=== PATIENT | female | born 1950 | race Caucasian/White ===

== ENCOUNTER 2022-03-14 19:54 | Inpatient (IN) | payer MEDICARE, OTHER ==
[2022-03-14 21:04] LABS: ANION GAP 17.9 mEq/L (7-13)
[2022-03-14] MEDS ORDERED: Lactated Ringers 1,000 ML IV ONE (22:42)
[2022-03-15] MEDS ORDERED: Ondansetron 4 MG/2 ML SDV IVPUSH PRN (00:24)
[2022-03-15] MEDS ORDERED: Docusate Sodium 100 MG Cap PO PRN (00:24)
[2022-03-15] MEDS ORDERED: Bisacodyl 5 MG Tab PO PRN (00:24)
[2022-03-15] MEDS ORDERED: Polyethylene Glycol 3350 Powder 17 GM Packet PO PRN (00:24)
[2022-03-15] MEDS ORDERED: Sodium Chloride 0.9% 1,000 ML IV SCH (00:30)
[2022-03-15] MEDS ORDERED: Aspirin 81 MG Tab.Chew PO ONE ×2 (00:53)
[2022-03-15 06:40] LABS: ANION GAP 17.1 mEq/L (7-13)
[2022-03-15] MEDS ORDERED: Potassium Chloride 10 MEQ Tab.ER PO ONE (07:31)
[2022-03-15] MEDS: Enoxaparin 30 MG/0.3 ML Syringe SUBCUT SCH (08:54)
[2022-03-15] MEDS: Acetaminophen 325 MG Tab PO PRN ×2 (08:54→22:18)
[2022-03-15] MEDS: Sodium Chloride 0.45% with KCl 1,000 ML IV SCH ×2 (08:56→22:17)
[2022-03-16] MEDS: Enoxaparin 30 MG/0.3 ML Syringe SUBCUT SCH (10:04)
[2022-03-16] MEDS: Sodium Chloride 0.9% 10 ML Syringe FLUSH PRN (21:01)
[2022-03-16] MEDS: Acetaminophen 325 MG Tab PO PRN (21:15)
[2022-03-17 07:26] LABS: ANION GAP 12.5 mEq/L (7-13)
[2022-03-17] MEDS ORDERED: Loperamide 2 MG Cap PO PRN (07:36)
[2022-03-17] MEDS: Enoxaparin 30 MG/0.3 ML Syringe SUBCUT SCH (08:24)
[2022-03-17] MEDS ORDERED: Nystatin Topical Powder 30 GM Bottle TOP SCH (09:00)
[2022-03-17] MEDS ORDERED: metroNIDAZOLE 250 MG Tab PO SCH (12:00)
[2022-03-17] MEDS: Acetaminophen 325 MG Tab PO PRN (12:49)
[2022-03-17] MEDS: metroNIDAZOLE 250 MG Tab PO SCH ×2 (12:51→21:41)
[2022-03-17] MEDS: Nystatin Topical Powder 30 GM Bottle TOP SCH (20:01)
[2022-03-17] MEDS: Sodium Chloride 0.9% 10 ML Syringe FLUSH PRN (20:04)
[2022-03-17] MEDS: Acetaminophen/HYDROcodone 325-5 MG Tab PO PRN (20:17)
[2022-03-18] MEDS: metroNIDAZOLE 250 MG Tab PO SCH (05:51)
[2022-03-18 07:23] LABS: ANION GAP 9.7 mEq/L (7-13)
[2022-03-18] MEDS: Acetaminophen/HYDROcodone 325-5 MG Tab PO PRN ×2 (09:11→15:57)
[2022-03-18] MEDS: Enoxaparin 30 MG/0.3 ML Syringe SUBCUT SCH (09:13)
[2022-03-18] MEDS: Nystatin Topical Powder 30 GM Bottle TOP SCH ×2 (09:13→20:31)
[2022-03-18] MEDS: Sodium Chloride 0.9% 10 ML Syringe FLUSH PRN (20:30)
[2022-03-19] MEDS: Acetaminophen/HYDROcodone 325-5 MG Tab PO PRN ×4 (00:14→21:49)
[2022-03-19 06:58] LABS: ANION GAP 5.2 mEq/L (7-13); CHLORIDE,CL 104 mmol/L (98-107); SODIUM,NA 132 mmol/L (136-145)
[2022-03-19 07:03] LABS: ESTIMATED GFR 78 mL/min (>=60)
[2022-03-19] MEDS ORDERED: Potassium Chloride 10 MEQ Tab.ER PO ONE (08:05)
[2022-03-19] MEDS: Enoxaparin 30 MG/0.3 ML Syringe SUBCUT SCH (09:10)
[2022-03-19] MEDS: Nystatin Topical Powder 30 GM Bottle TOP SCH ×2 (09:14→21:40)
[2022-03-19] MEDS: Polyvinyl Alcohol 1.4% Ophth Soln 15 ML Bottle EYEBOTH SCH ×4 (09:15→21:32)
[2022-03-19] MEDS: Albuterol/Ipratropium 3.0-0.5 MG/3 ML Neb Soln NEB PRN (23:16)
[2022-03-20 09:13] LABS: ANION GAP 11.7 mEq/L (7-13)
[2022-03-20] MEDS ORDERED: REMDESIVIR 200 MG in Sodium Chloride 0.9% 250 ML IV ONE (10:00)
[2022-03-20] MEDS ORDERED: Dexamethasone 4 MG/ML SDV IVPUSH ONE (10:15)
[2022-03-20] MEDS: Polyvinyl Alcohol 1.4% Ophth Soln 15 ML Bottle EYEBOTH SCH ×4 (11:34→21:18)
[2022-03-20] MEDS: Enoxaparin 30 MG/0.3 ML Syringe SUBCUT SCH (11:34)
[2022-03-20] MEDS: Nystatin Topical Powder 30 GM Bottle TOP SCH ×2 (11:34→21:18)
[2022-03-20] MEDS ORDERED: Menthol 10%/Methyl Salicylate 15% 85 GM Tube TOP PRN (12:20)
[2022-03-20] MEDS: Levofloxacin/Dextrose 5%-Water 500 MG in Premix Bag 1 BAG IV SCH (13:27)
[2022-03-20] MEDS ORDERED: Iopamidol 755 Mg/ML 100 ML Bottle IVPUSH ONE (17:37)
[2022-03-20] MEDS: Melatonin 3 MG Tab PO PRN (21:16)
[2022-03-20] MEDS: Apixaban 5 MG Tab PO SCH (21:16)
[2022-03-20] MEDS: Albuterol/Ipratropium 3.0-0.5 MG/3 ML Neb Soln NEB PRN (21:16)
[2022-03-20] MEDS: Sodium Chloride 0.9% 10 ML Syringe FLUSH PRN (21:17)
[2022-03-20] MEDS: Acetaminophen/HYDROcodone 325-5 MG Tab PO PRN (21:19)
[2022-03-21] MEDS: Acetaminophen/HYDROcodone 325-5 MG Tab PO PRN ×2 (02:28→21:18)
[2022-03-21 06:23] LABS: ANION GAP 11.5 mEq/L (7-13)
[2022-03-21] MEDS: Apixaban 5 MG Tab PO SCH ×2 (09:49→21:16)
[2022-03-21] MEDS: Nystatin Topical Powder 30 GM Bottle TOP SCH ×2 (09:50→21:17)
[2022-03-21] MEDS: Polyvinyl Alcohol 1.4% Ophth Soln 15 ML Bottle EYEBOTH SCH ×4 (09:51→21:17)
[2022-03-21] MEDS: REMDESIVIR 100 MG in Sodium Chloride 0.9% 100 ML IV SCH (09:58)
[2022-03-21] MEDS: Losartan 50 MG Tab PO SCH ×2 (10:01→21:16)
[2022-03-21] MEDS: Hydroxychloroquine 200 MG Tab PO SCH ×2 (10:01→21:18)
[2022-03-21] MEDS: Montelukast 10 MG Tab PO SCH (10:01)
[2022-03-21] MEDS: Gabapentin 300 MG Cap PO SCH ×3 (10:03→21:17)
[2022-03-21] MEDS: Fluticasone NASAL Spray 16 GM Bottle NASBOTH SCH (10:04)
[2022-03-21] MEDS: Levofloxacin/Dextrose 5%-Water 500 MG in Premix Bag 1 BAG IV SCH (11:14)
[2022-03-21] MEDS: predniSONE 5 MG Tab PO SCH (21:18)
[2022-03-21] MEDS: Melatonin 3 MG Tab PO PRN (21:18)
[2022-03-22] MEDS: Hydroxychloroquine 200 MG Tab PO SCH ×2 (09:24→21:40)
[2022-03-22] MEDS: Montelukast 10 MG Tab PO SCH (09:25)
[2022-03-22] MEDS: Apixaban 5 MG Tab PO SCH ×2 (09:25→21:40)
[2022-03-22] MEDS: Gabapentin 300 MG Cap PO SCH ×3 (09:25→21:40)
[2022-03-22] MEDS: Losartan 50 MG Tab PO SCH ×2 (09:25→21:39)
[2022-03-22] MEDS: Acetaminophen 325 MG Tab PO PRN (09:26)
[2022-03-22] MEDS: predniSONE 5 MG Tab PO SCH ×2 (09:26→21:41)
[2022-03-22] MEDS: Nystatin Topical Powder 30 GM Bottle TOP SCH ×2 (09:27→21:39)
[2022-03-22] MEDS: Polyvinyl Alcohol 1.4% Ophth Soln 15 ML Bottle EYEBOTH SCH ×4 (09:28→21:38)
[2022-03-22] MEDS: Fluticasone NASAL Spray 16 GM Bottle NASBOTH SCH (09:28)
[2022-03-22] MEDS: Sodium Chloride 0.9% 10 ML Syringe FLUSH PRN ×4 (09:39→21:48)
[2022-03-22] MEDS: REMDESIVIR 100 MG in Sodium Chloride 0.9% 100 ML IV SCH (09:39)
[2022-03-22] MEDS: Levofloxacin/Dextrose 5%-Water 500 MG in Premix Bag 1 BAG IV SCH (11:16)
[2022-03-22] MEDS: Acetaminophen/HYDROcodone 325-5 MG Tab PO PRN (18:07)
[2022-03-22] MEDS: Melatonin 3 MG Tab PO PRN (21:41)
[2022-03-23] MEDS: Losartan 50 MG Tab PO SCH ×2 (09:44→21:03)
[2022-03-23] MEDS: Hydroxychloroquine 200 MG Tab PO SCH ×2 (09:44→21:00)
[2022-03-23] MEDS: Apixaban 5 MG Tab PO SCH ×2 (09:44→21:00)
[2022-03-23] MEDS: Gabapentin 300 MG Cap PO SCH ×3 (09:44→21:03)
[2022-03-23] MEDS: Fluticasone NASAL Spray 16 GM Bottle NASBOTH SCH (09:48)
[2022-03-23] MEDS: Nystatin Topical Powder 30 GM Bottle TOP SCH ×2 (09:48→21:04)
[2022-03-23] MEDS: Polyvinyl Alcohol 1.4% Ophth Soln 15 ML Bottle EYEBOTH SCH ×4 (09:49→21:05)
[2022-03-23] MEDS: predniSONE 5 MG Tab PO SCH ×2 (09:50→21:02)
[2022-03-23] MEDS: Montelukast 10 MG Tab PO SCH (09:50)
[2022-03-23] MEDS: REMDESIVIR 100 MG in Sodium Chloride 0.9% 100 ML IV SCH (09:51)
[2022-03-23] MEDS: Acetaminophen 325 MG Tab PO SCH ×3 (10:05→21:00)
[2022-03-23] MEDS: Levofloxacin/Dextrose 5%-Water 500 MG in Premix Bag 1 BAG IV SCH (11:35)
[2022-03-23] MEDS: Melatonin 3 MG Tab PO PRN (21:03)
[2022-03-24] MEDS: Acetaminophen 325 MG Tab PO SCH ×2 (04:29→09:12)
[2022-03-24 08:54] LABS: ANION GAP 13.3 mEq/L (7-13)
[2022-03-24] MEDS: Fluticasone NASAL Spray 16 GM Bottle NASBOTH SCH (08:54)
[2022-03-24] MEDS: Apixaban 5 MG Tab PO SCH (08:55)
[2022-03-24] MEDS: Losartan 50 MG Tab PO SCH (08:55)
[2022-03-24] MEDS: Gabapentin 300 MG Cap PO SCH (08:56)
[2022-03-24] MEDS: Montelukast 10 MG Tab PO SCH (08:56)
[2022-03-24] MEDS: predniSONE 5 MG Tab PO SCH (08:56)
[2022-03-24] MEDS: Hydroxychloroquine 200 MG Tab PO SCH (08:57)
[2022-03-24] MEDS: Polyvinyl Alcohol 1.4% Ophth Soln 15 ML Bottle EYEBOTH SCH (08:57)
[2022-03-24] MEDS ORDERED: VILANTEROL INH SCH (09:00)
[2022-03-24] MEDS ORDERED: LEVOCETIRIZINE DIHYDROCHLORIDE 5 MG PO SCH (09:00)
[2022-03-24] MEDS ORDERED: FLUTICASONE INH SCH (09:00)
[2022-03-24] MEDS: Nystatin Topical Powder 30 GM Bottle TOP SCH (09:04)
[2022-03-24] MEDS: REMDESIVIR 100 MG in Sodium Chloride 0.9% 100 ML IV SCH (09:05)
[2022-03-24] MEDS: Levofloxacin/Dextrose 5%-Water 500 MG in Premix Bag 1 BAG IV SCH (11:37)
[2022-03-28] MEDS ORDERED: Apixaban 5 MG Tab PO SCH (09:00)
== END 2022-03-24 12:51 | disposition swing bed (61) | DRG 592 ==
LOC: EDBD → DL.ED 19:54 → DL.MS 23:46 → DL.ED 03-15 00:15 → DL.MS 03-15 00:18 → UNDOADMIN 03-15 00:18 → DL.MS 03-15 01:34 → UNDODISIN 03-24 12:51
PROVIDERS: ADMIT Internal Medicine; ATTEND Internal Medicine
DX: L89.142 Pressure ulcer of left lower back, stage 2 (principal); I26.99 Other pulmonary embolism without acute cor pulmonale; E87.1 Hypo-osmolality and hyponatremia; U07.1 COVID-19; W19.XXXA Unspecified fall, initial encounter; S32.009A Unspecified fracture of unspecified lumbar vertebra, initial encounter for closed fracture; M32.10 Systemic lupus erythematosus, organ or system involvement unspecified; L89.303 Pressure ulcer of unspecified buttock, stage 3; E87.6 Hypokalemia; G89.29 Other chronic pain; M32.9 Systemic lupus erythematosus, unspecified; J45.909 Unspecified asthma, uncomplicated; I10 Essential (primary) hypertension; R77.8 Other specified abnormalities of plasma proteins; M54.50 Low back pain, unspecified; I48.91 Unspecified atrial fibrillation; T79.6XXA Traumatic ischemia of muscle, initial encounter; Z20.822 Contact with and (suspected) exposure to COVID-19; Z28.310 Unvaccinated for COVID-19; Z88.0 Allergy status to penicillin; Z79.899 Other long term (current) drug therapy; Z79.52 Long term (current) use of systemic steroids; Z88.1 Allergy status to other antibiotic agents; Z88.7 Allergy status to serum and vaccine
CPT/HCPCS: 36415; 51702; 70450; 71045; 71260; 72125; 72131; 72192; 74176; 80048; 80053; 80076; 81001; 82150; 82550; 83605; 83690; 83735; 83880; 84443; 84484; 85025; 85027; 85379; 85610; 86140; 87040; 93005; 93010; 96360; 97110-GP; 97116-GP; 97161-GP; 97166-GO; 97530-GO; 97530-GP; 99222; 99231; 99232; 99239; 99284; 99285-25; A9270-GY; J1100; J1650; J1956; J3480; J3490; J7030; J7050; J7120; J7512; J7620-GY; Q9967; U0002

== ENCOUNTER 2022-03-24 08:56 | Inpatient (IN) | payer MEDICARE ==
[2022-03-24] MEDS ORDERED: Ondansetron 4 MG/2 ML SDV IVPUSH PRN (10:08)
[2022-03-24] MEDS ORDERED: Sodium Chloride 0.9% 10 ML Syringe FLUSH PRN ×2 (10:08)
[2022-03-24] MEDS ORDERED: Polyethylene Glycol 3350 Powder 17 GM Packet PO PRN (10:08)
[2022-03-24] MEDS ORDERED: Bisacodyl 5 MG Tab PO PRN (10:08)
[2022-03-24] MEDS ORDERED: Acetaminophen/HYDROcodone 325-5 MG Tab PO PRN (10:08)
[2022-03-24] MEDS ORDERED: Albuterol/Ipratropium 3.0-0.5 MG/3 ML Neb Soln NEB PRN (10:08)
[2022-03-24] MEDS ORDERED: Docusate Sodium 100 MG Cap PO PRN (10:08)
[2022-03-24] MEDS ORDERED: Levofloxacin/Dextrose 5%-Water 500 MG in Premix Bag 1 BAG IV SCH (11:00)
[2022-03-24] MEDS: Polyvinyl Alcohol 1.4% Ophth Soln 15 ML Bottle EYEBOTH SCH ×3 (13:56→21:06)
[2022-03-24] MEDS: Gabapentin 300 MG Cap PO SCH ×2 (13:56→21:08)
[2022-03-24] MEDS ORDERED: Gabapentin 300 MG Cap PO SCH (14:00)
[2022-03-24] MEDS: predniSONE 5 MG Tab PO SCH (17:34)
[2022-03-24] MEDS: Potassium Chloride 10 MEQ Tab.ER PO SCH (17:35)
[2022-03-24] MEDS: Acetaminophen 325 MG Tab PO SCH ×2 (17:35→23:59)
[2022-03-24] MEDS ORDERED: Hydroxychloroquine 200 MG Tab PO SCH (21:00)
[2022-03-24] MEDS ORDERED: predniSONE 5 MG Tab PO SCH (21:00)
[2022-03-24] MEDS ORDERED: Losartan 50 MG Tab PO SCH (21:00)
[2022-03-24] MEDS: Melatonin 3 MG Tab PO PRN (21:07)
[2022-03-24] MEDS: Nystatin Topical Powder 30 GM Bottle TOP SCH (21:07)
[2022-03-24] MEDS: Losartan 50 MG Tab PO SCH (21:08)
[2022-03-24] MEDS: Hydroxychloroquine 200 MG Tab PO SCH (21:08)
[2022-03-24] MEDS: Apixaban 5 MG Tab PO SCH (21:08)
[2022-03-24] MEDS: Menthol 10%/Methyl Salicylate 15% 85 GM Tube TOP SCH (21:20)
[2022-03-25] MEDS: Acetaminophen 325 MG Tab PO SCH ×3 (05:57→17:03)
[2022-03-25] MEDS: Menthol 10%/Methyl Salicylate 15% 85 GM Tube TOP PRN (06:37)
[2022-03-25] MEDS ORDERED: guaiFENesin/Dextromethorphan 100-10 MG/5 ML Soln 5 ML Cup PO PRN (08:27)
[2022-03-25] MEDS: Potassium Chloride 10 MEQ Tab.ER PO SCH ×2 (08:31→17:03)
[2022-03-25] MEDS: Hydroxychloroquine 200 MG Tab PO SCH ×2 (08:31→20:30)
[2022-03-25] MEDS: Furosemide 20 MG Tab PO SCH (08:32)
[2022-03-25] MEDS: Apixaban 5 MG Tab PO SCH ×2 (08:32→20:30)
[2022-03-25] MEDS: Losartan 50 MG Tab PO SCH ×2 (08:32→20:31)
[2022-03-25] MEDS: Montelukast 10 MG Tab PO SCH (08:32)
[2022-03-25] MEDS: predniSONE 5 MG Tab PO SCH ×2 (08:33→17:03)
[2022-03-25] MEDS: Gabapentin 300 MG Cap PO SCH ×3 (08:33→20:29)
[2022-03-25] MEDS: LEVOCETIRIZINE DIHYDROCHLORIDE 5 MG PO SCH (08:34)
[2022-03-25] MEDS: Menthol 10%/Methyl Salicylate 15% 85 GM Tube TOP SCH ×2 (08:34→20:34)
[2022-03-25] MEDS: Fluticasone NASAL Spray 16 GM Bottle NASBOTH SCH (08:35)
[2022-03-25] MEDS: Nystatin Topical Powder 30 GM Bottle TOP SCH ×2 (08:36→20:34)
[2022-03-25] MEDS: Polyvinyl Alcohol 1.4% Ophth Soln 15 ML Bottle EYEBOTH SCH ×4 (08:37→20:35)
[2022-03-25] MEDS: VILANTEROL INH SCH (08:38)
[2022-03-25] MEDS: FLUTICASONE INH SCH (08:38)
[2022-03-25] MEDS ORDERED: Fluticasone NASAL Spray 16 GM Bottle NASBOTH SCH (09:00)
[2022-03-25] MEDS ORDERED: Montelukast 10 MG Tab PO SCH (09:00)
[2022-03-25] MEDS ORDERED: Non-Formulary Medication 1 Each (Potassium Chloride [Potassium Chloride] 10 MEQ Capsule.Er PO SCH (09:00)
[2022-03-25] MEDS ORDERED: Non-Formulary Medication 1 Each (Levocetirizine Dihydrochloride [Xyzal] 5 MG Tablet) PO SCH (09:00)
[2022-03-25] MEDS ORDERED: Non-Formulary Medication 1 Each (Fluticasone/Vilanterol 1 EACH Each) INH SCH (09:00)
[2022-03-25] MEDS ORDERED: REMDESIVIR 100 MG in Sodium Chloride 0.9% 100 ML IV SCH (10:00)
[2022-03-25] MEDS ORDERED: Calcium Carbonate 500 MG Tab.Chew PO PRN (21:53)
[2022-03-25] MEDS: Melatonin 3 MG Tab PO PRN (22:16)
[2022-03-26] MEDS: Acetaminophen 325 MG Tab PO SCH ×5 (00:18→23:45)
[2022-03-26] MEDS: Fluticasone NASAL Spray 16 GM Bottle NASBOTH SCH (09:31)
[2022-03-26] MEDS: Menthol 10%/Methyl Salicylate 15% 85 GM Tube TOP SCH ×2 (09:31→20:51)
[2022-03-26] MEDS: Nystatin Topical Powder 30 GM Bottle TOP SCH ×2 (09:32→20:54)
[2022-03-26] MEDS: FLUTICASONE INH SCH (09:32)
[2022-03-26] MEDS: VILANTEROL INH SCH (09:32)
[2022-03-26] MEDS: Polyvinyl Alcohol 1.4% Ophth Soln 15 ML Bottle EYEBOTH SCH ×4 (09:33→20:54)
[2022-03-26] MEDS: LEVOCETIRIZINE DIHYDROCHLORIDE 5 MG PO SCH (09:33)
[2022-03-26] MEDS: Hydroxychloroquine 200 MG Tab PO SCH ×2 (09:34→20:52)
[2022-03-26] MEDS: Apixaban 5 MG Tab PO SCH ×2 (09:34→20:52)
[2022-03-26] MEDS: Potassium Chloride 10 MEQ Tab.ER PO SCH ×2 (09:35→17:22)
[2022-03-26] MEDS: Montelukast 10 MG Tab PO SCH (09:36)
[2022-03-26] MEDS: Losartan 50 MG Tab PO SCH ×2 (09:36→20:53)
[2022-03-26] MEDS: predniSONE 5 MG Tab PO SCH ×2 (09:36→17:22)
[2022-03-26] MEDS: Gabapentin 300 MG Cap PO SCH ×3 (09:36→20:54)
[2022-03-26] MEDS: Furosemide 20 MG Tab PO SCH (09:37)
[2022-03-26] MEDS: Melatonin 3 MG Tab PO PRN (23:44)
[2022-03-27] MEDS: Acetaminophen 325 MG Tab PO SCH ×3 (06:22→17:31)
[2022-03-27 07:06] LABS: ANION GAP 12.9 mEq/L (7-13)
[2022-03-27] MEDS: Potassium Chloride 10 MEQ Tab.ER PO SCH ×2 (08:58→17:30)
[2022-03-27] MEDS: Montelukast 10 MG Tab PO SCH (08:59)
[2022-03-27] MEDS: Furosemide 20 MG Tab PO SCH (08:59)
[2022-03-27] MEDS: Apixaban 5 MG Tab PO SCH ×2 (08:59→20:36)
[2022-03-27] MEDS: Losartan 50 MG Tab PO SCH ×2 (08:59→20:51)
[2022-03-27] MEDS: predniSONE 5 MG Tab PO SCH ×2 (09:00→17:31)
[2022-03-27] MEDS: Hydroxychloroquine 200 MG Tab PO SCH ×2 (09:00→20:36)
[2022-03-27] MEDS: Gabapentin 300 MG Cap PO SCH ×3 (09:00→20:36)
[2022-03-27] MEDS: Fluticasone NASAL Spray 16 GM Bottle NASBOTH SCH (09:02)
[2022-03-27] MEDS: LEVOCETIRIZINE DIHYDROCHLORIDE 5 MG PO SCH (09:03)
[2022-03-27] MEDS: Polyvinyl Alcohol 1.4% Ophth Soln 15 ML Bottle EYEBOTH SCH ×4 (09:03→20:37)
[2022-03-27] MEDS: Menthol 10%/Methyl Salicylate 15% 85 GM Tube TOP SCH ×2 (09:04→20:37)
[2022-03-27] MEDS: FLUTICASONE INH SCH (09:05)
[2022-03-27] MEDS: Nystatin Topical Powder 30 GM Bottle TOP SCH ×2 (09:05→20:42)
[2022-03-27] MEDS: VILANTEROL INH SCH (09:05)
[2022-03-27] MEDS: Lidocaine 5% 700 MG Patch TOP SCH (11:21)
[2022-03-27] MEDS: Melatonin 3 MG Tab PO PRN (20:36)
[2022-03-28] MEDS: Acetaminophen 325 MG Tab PO SCH ×4 (00:10→17:16)
[2022-03-28] MEDS: Apixaban 5 MG Tab PO SCH ×2 (08:53→20:19)
[2022-03-28] MEDS: Furosemide 20 MG Tab PO SCH (08:53)
[2022-03-28] MEDS: Montelukast 10 MG Tab PO SCH (08:53)
[2022-03-28] MEDS: Losartan 50 MG Tab PO SCH ×2 (08:53→20:19)
[2022-03-28] MEDS: Hydroxychloroquine 200 MG Tab PO SCH ×2 (08:53→20:19)
[2022-03-28] MEDS: predniSONE 5 MG Tab PO SCH ×2 (08:54→17:16)
[2022-03-28] MEDS: Gabapentin 300 MG Cap PO SCH ×3 (08:54→20:22)
[2022-03-28] MEDS: Potassium Chloride 10 MEQ Tab.ER PO SCH ×2 (08:54→17:17)
[2022-03-28] MEDS: Lidocaine 5% 700 MG Patch TOP SCH ×2 (08:56→09:06)
[2022-03-28] MEDS: Fluticasone NASAL Spray 16 GM Bottle NASBOTH SCH (08:57)
[2022-03-28] MEDS: Polyvinyl Alcohol 1.4% Ophth Soln 15 ML Bottle EYEBOTH SCH ×4 (08:58→20:23)
[2022-03-28] MEDS: LEVOCETIRIZINE DIHYDROCHLORIDE 5 MG PO SCH ×2 (08:59→09:02)
[2022-03-28] MEDS: FLUTICASONE INH SCH ×2 (09:00→09:24)
[2022-03-28] MEDS: VILANTEROL INH SCH ×2 (09:00→09:24)
[2022-03-28] MEDS: Nystatin Topical Powder 30 GM Bottle TOP SCH ×2 (09:00→20:24)
[2022-03-28] MEDS: Menthol 10%/Methyl Salicylate 15% 85 GM Tube TOP SCH ×2 (09:04→20:23)
[2022-03-29] MEDS: Acetaminophen 325 MG Tab PO SCH ×5 (00:34→23:32)
[2022-03-29] MEDS: FLUTICASONE INH SCH (09:26)
[2022-03-29] MEDS: VILANTEROL INH SCH (09:26)
[2022-03-29] MEDS: Montelukast 10 MG Tab PO SCH (09:27)
[2022-03-29] MEDS: Potassium Chloride 10 MEQ Tab.ER PO SCH ×3 (09:27→17:28)
[2022-03-29] MEDS: Fluticasone NASAL Spray 16 GM Bottle NASBOTH SCH (09:27)
[2022-03-29] MEDS: Furosemide 20 MG Tab PO SCH (09:27)
[2022-03-29] MEDS: Gabapentin 300 MG Cap PO SCH ×3 (09:28→21:16)
[2022-03-29] MEDS: Apixaban 5 MG Tab PO SCH ×2 (09:28→21:16)
[2022-03-29] MEDS: predniSONE 5 MG Tab PO SCH ×2 (09:28→17:26)
[2022-03-29] MEDS: Hydroxychloroquine 200 MG Tab PO SCH ×2 (09:28→21:18)
[2022-03-29] MEDS: Losartan 50 MG Tab PO SCH ×2 (09:28→21:17)
[2022-03-29] MEDS: Lidocaine 5% 700 MG Patch TOP SCH (09:31)
[2022-03-29] MEDS: Menthol 10%/Methyl Salicylate 15% 85 GM Tube TOP SCH ×2 (09:32→21:20)
[2022-03-29] MEDS: Polyvinyl Alcohol 1.4% Ophth Soln 15 ML Bottle EYEBOTH SCH ×4 (09:32→21:20)
[2022-03-29] MEDS: Nystatin Topical Powder 30 GM Bottle TOP SCH ×3 (09:32→21:21)
[2022-03-29] MEDS: LEVOCETIRIZINE DIHYDROCHLORIDE 5 MG PO SCH ×2 (09:33→23:43)
[2022-03-30] MEDS: Melatonin 3 MG Tab PO PRN ×2 (00:06→21:34)
[2022-03-30] MEDS: Acetaminophen 325 MG Tab PO SCH ×3 (06:24→18:07)
[2022-03-30] MEDS: Hydroxychloroquine 200 MG Tab PO SCH ×2 (08:33→21:33)
[2022-03-30] MEDS: Potassium Chloride 10 MEQ Tab.ER PO SCH ×2 (08:33→17:03)
[2022-03-30] MEDS: Montelukast 10 MG Tab PO SCH (08:35)
[2022-03-30] MEDS: predniSONE 5 MG Tab PO SCH ×2 (08:36→18:08)
[2022-03-30] MEDS: Apixaban 5 MG Tab PO SCH ×2 (08:36→21:34)
[2022-03-30] MEDS: Furosemide 20 MG Tab PO SCH (08:37)
[2022-03-30] MEDS: Gabapentin 300 MG Cap PO SCH ×3 (08:38→21:34)
[2022-03-30] MEDS: Losartan 50 MG Tab PO SCH ×2 (08:39→21:34)
[2022-03-30] MEDS: Lidocaine 5% 700 MG Patch TOP SCH (08:40)
[2022-03-30] MEDS: Fluticasone NASAL Spray 16 GM Bottle NASBOTH SCH (08:45)
[2022-03-30] MEDS: Polyvinyl Alcohol 1.4% Ophth Soln 15 ML Bottle EYEBOTH SCH ×4 (08:46→21:35)
[2022-03-30] MEDS: Menthol 10%/Methyl Salicylate 15% 85 GM Tube TOP PRN (08:47)
[2022-03-30] MEDS: Menthol 10%/Methyl Salicylate 15% 85 GM Tube TOP SCH ×2 (08:49→21:36)
[2022-03-30] MEDS: FLUTICASONE INH SCH (08:50)
[2022-03-30] MEDS: VILANTEROL INH SCH (08:50)
[2022-03-30] MEDS: Nystatin Topical Powder 30 GM Bottle TOP SCH ×2 (08:59→21:37)
[2022-03-30] MEDS: Emollient Combination No.71 177 ML Bottle TOP SCH ×2 (17:01→21:33)
[2022-03-30] MEDS ORDERED: LEVOCETIRIZINE DIHYDROCHLORIDE 5 MG PO SCH (21:00)
[2022-03-31] MEDS: Acetaminophen 325 MG Tab PO SCH ×3 (01:51→14:05)
[2022-03-31] MEDS: Potassium Chloride 10 MEQ Tab.ER PO SCH (08:46)
[2022-03-31] MEDS: predniSONE 5 MG Tab PO SCH (08:49)
[2022-03-31] MEDS: Gabapentin 300 MG Cap PO SCH (08:49)
[2022-03-31] MEDS: Furosemide 20 MG Tab PO SCH (08:49)
[2022-03-31] MEDS: Montelukast 10 MG Tab PO SCH (08:49)
[2022-03-31] MEDS: Apixaban 5 MG Tab PO SCH (08:49)
[2022-03-31] MEDS: Hydroxychloroquine 200 MG Tab PO SCH (08:49)
[2022-03-31] MEDS: Losartan 50 MG Tab PO SCH (08:50)
[2022-03-31] MEDS: Fluticasone NASAL Spray 16 GM Bottle NASBOTH SCH (08:50)
[2022-03-31] MEDS: Emollient Combination No.71 177 ML Bottle TOP SCH (08:50)
[2022-03-31] MEDS: Polyvinyl Alcohol 1.4% Ophth Soln 15 ML Bottle EYEBOTH SCH ×2 (08:51→14:05)
[2022-03-31] MEDS: Menthol 10%/Methyl Salicylate 15% 85 GM Tube TOP SCH (08:51)
[2022-03-31] MEDS: Nystatin Topical Powder 30 GM Bottle TOP SCH (08:51)
[2022-03-31] MEDS: Lidocaine 5% 700 MG Patch TOP SCH (08:52)
[2022-03-31] MEDS: FLUTICASONE INH SCH (08:52)
[2022-03-31] MEDS: VILANTEROL INH SCH (08:52)
== END 2022-03-31 13:58 | disposition home or self-care (01) | DRG 557 ==
LOC: DL.MS 12:55
PROVIDERS: ADMIT Internal Medicine; ATTEND Internal Medicine
PROC: 8E0ZXY6 Isolation (ICD-10-PCS; principal; 2022-03-24)
PROC: XW033E5 Introduction of Remdesivir Anti-infective into Peripheral Vein, Percutaneous Approach, New Technology Group 5 (ICD-10-PCS; 2022-03-25)
DX: M62.82 Rhabdomyolysis (principal); U07.1 COVID-19; I10 Essential (primary) hypertension; E78.5 Hyperlipidemia, unspecified; J45.909 Unspecified asthma, uncomplicated; M54.9 Dorsalgia, unspecified; L89.329 Pressure ulcer of left buttock, unspecified stage; E87.6 Hypokalemia; L89.319 Pressure ulcer of right buttock, unspecified stage; Z91.81 History of falling; Z87.81 Personal history of (healed) traumatic fracture; Z86.711 Personal history of pulmonary embolism; Z79.01 Long term (current) use of anticoagulants; S32.039D Unspecified fracture of third lumbar vertebra, subsequent encounter for fracture with routine healing; W18.11XD Fall from or off toilet without subsequent striking against object, subsequent encounter; Z79.899 Other long term (current) drug therapy; Z88.0 Allergy status to penicillin
CPT/HCPCS: 36415; 80048; 83540; 83550; 85027; 97110-GP; 97116-GP; 97161-GP; 97165-GO; 97530-GO; A9270-GY; J3490; J7512

== ENCOUNTER 2024-01-18 09:57 | Emergency (ER) | payer MEDICARE ==
[2024-01-18 10:34] LABS: APPEARANCE,URINE CLOUDY (CLEAR); BILIRUBIN,URINE SMALL (NEGATIVE); COLOR,URINE YELLOW (YELLOW); GLUCOSE,URINE NEGATIVE (NEGATIVE); KETONES,URINE NEGATIVE (NEGATIVE); LEUKOCYTE ESTERASE,URINE LARGE (NEGATIVE); NITRITE,URINE POSITIVE (NEGATIVE); OCCULT BLOOD,URINE LARGE (NEGATIVE); PROTEIN,URINE 100 (NEGATIVE)
[2024-01-18] MEDS ORDERED: Sodium Chloride 0.9% 10 ML Syringe FLUSH PRN (10:42)
[2024-01-18 10:45] LABS: WBC,URINE >100 /HPF (0-5/HPF)
[2024-01-18 10:46] LABS: BACTERIA,URINE MANY /HPF (0-FEW/HPF); EPITHELIAL CELLS,URINE FEW /HPF (NOT SEEN); RBC,URINE >100 /HPF (0-5)
[2024-01-18 11:07] LABS: BASOPHILS PERCENT AUTO 0.3 % (0.0-1.0); EOSINOPHILS PERCENT AUTO 5.4 % (1.0-3.0); HEMATOCRIT 36.3 % (37.0-47.0); HEMOGLOBIN 11.1 g/dL (12.0-16.0); MEAN CORPUSCULAR HEMOGLOBIN 27.8 pg (27.0-34.0); MEAN CORPUSCULAR HGB CONC 30.6 g/dL (33.0-35.0); MEAN CORPUSCULAR VOLUME 90.8 fL (80-100); MONOCYTES PERCENT AUTO 11.4 % (2-8); NEUTROPHILS PERCENT AUTO 63.9 % (42.2-75.2); PLATELET COUNT,PLT 141 10^3/uL (150-450); WHITE BLOOD CELL COUNT,WBC 6.7 10^3/uL (5.0-10.0)
[2024-01-18 11:31] LABS: LACTIC ACID 1.3 mmol/L (0.4-2.0)
[2024-01-18 11:36] LABS: ALANINE AMINOTRANSFERASE,ALT 21 U/L (14-59); ALKALINE PHOSPHATASE 104 U/L (46-116); ANION GAP 11.5 mEq/L (7-13); ASPARTATE AMNIOTRANSFERASE,AST 26 U/L (15-37); BILIRUBIN TOTAL 0.3 mg/dL (0.2-1.0); CARBON DIOXIDE,CO2 29 mmol/L (21-32); CHLORIDE,CL 107 mmol/L (98-107); GLUCOSE RANDOM 94 mg/dL (70-99); POTASSIUM,K 4.5 mmol/L (3.5-5.1); PROTEIN TOTAL,TP 6.9 g/dL (6.4-8.2); SODIUM,NA 143 mmol/L (136-145); TSH ULTRASENSITIVE 5.43 uIU/mL (0.36-3.74)
[2024-01-18 11:56] LABS: A/G RATIO 0.86; ALBUMIN 3.2 g/dL (3.4-5.0); BLOOD UREA NITROGEN,BUN 23 mg/dL (7-18); BUN/CREATININE RATIO 20.5 (No establ ref range); CALCIUM 8.8 mg/dL (8.5-10.1); CREATININE 1.12 mg/dL (0.55-1.02); EST CRCL DRUG DOSING (CG) 35.35 mL/min
[2024-01-18 11:58] LABS: ESTIMATED GFR 51 mL/min (>=60); ETHANOL BLOOD MEDICAL < 3 mg/dL (0)
[2024-01-18] MEDS: Gentamicin 40 MG/ML 2 ML Vial IM ONE (12:29)
[2024-01-18] MEDS ORDERED: Gentamicin 400 MG in Sodium Chloride 0.9% 100 ML IV ONE (12:30)
== END 2024-01-18 12:45 | disposition home or self-care (01) ==
LOC: DL.ED 09:57
DX: N39.0 Urinary tract infection, site not specified (principal); R40.4 Transient alteration of awareness; I10 Essential (primary) hypertension; Z88.1 Allergy status to other antibiotic agents; Z88.0 Allergy status to penicillin; Z88.7 Allergy status to serum and vaccine; Z79.01 Long term (current) use of anticoagulants; Z79.899 Other long term (current) drug therapy; Z86.16 Personal history of COVID-19; Z95.1 Presence of aortocoronary bypass graft
CPT/HCPCS: 36415; 70450; 71045; 80053; 80307; 81001; 83605; 83735; 84145; 84443; 84484; 85025; 87086; 87088; 87186; 93005; 96372; 99285; J1580

== ENCOUNTER 2024-02-03 11:14 | Inpatient (IN) | payer MEDICARE ==
[2024-02-03] MEDS ORDERED: Sodium Chloride 0.9% 500 ML IV SCH (11:45)
[2024-02-03 11:58] LABS: BASOPHILS PERCENT AUTO 0.3 % (0.0-1.0); EOSINOPHILS PERCENT AUTO 0.5 % (1.0-3.0); HEMATOCRIT 37.2 % (37.0-47.0); HEMOGLOBIN 11.3 g/dL (12.0-16.0); LYMPHOCYTES PERCENT AUTO 7.2 % (20.5-50.1); MEAN CORPUSCULAR HEMOGLOBIN 27.8 pg (27.0-34.0); MEAN CORPUSCULAR HGB CONC 30.4 g/dL (33.0-35.0); MEAN CORPUSCULAR VOLUME 91.4 fL (80-100); MONOCYTES PERCENT AUTO 9.3 % (2-8); NEUTROPHILS PERCENT AUTO 82.7 % (42.2-75.2); PLATELET COUNT,PLT 191 10^3/uL (150-450); RED BLOOD CELL COUNT 4.07 10^6/uL (4.2-5.4); WHITE BLOOD CELL COUNT,WBC 9.3 10^3/uL (5.0-10.0)
[2024-02-03 12:24] LABS: ALANINE AMINOTRANSFERASE,ALT 25 U/L (14-59); ALKALINE PHOSPHATASE 100 U/L (46-116); ANION GAP 13.8 mEq/L (7-13); ASPARTATE AMNIOTRANSFERASE,AST 40 U/L (15-37); BILIRUBIN DIRECT 0.1 mg/dL (0.0-0.2); BILIRUBIN INDIRECT 0.2; BILIRUBIN TOTAL 0.3 mg/dL (0.2-1.0); BLOOD UREA NITROGEN,BUN 21 mg/dL (7-18); CALCIUM 8.8 mg/dL (8.5-10.1); CARBON DIOXIDE,CO2 29 mmol/L (21-32); CHLORIDE,CL 108 mmol/L (98-107); CREATININE 1.11 mg/dL (0.55-1.02); GLUCOSE RANDOM 99 mg/dL (70-99); POTASSIUM,K 3.8 mmol/L (3.5-5.1); PROTEIN TOTAL,TP 6.4 g/dL (6.4-8.2); SODIUM,NA 147 mmol/L (136-145)
[2024-02-03 12:25] LABS: A/G RATIO 0.88; ESTIMATED GFR 52 mL/min (>=60)
[2024-02-03 13:02] LABS: APPEARANCE,URINE CLEAR (CLEAR); BILIRUBIN,URINE NEGATIVE (NEGATIVE); COLOR,URINE YELLOW (YELLOW); GLUCOSE,URINE NEGATIVE (NEGATIVE); KETONES,URINE NEGATIVE (NEGATIVE); LEUKOCYTE ESTERASE,URINE NEGATIVE (NEGATIVE); NITRITE,URINE POSITIVE (NEGATIVE); OCCULT BLOOD,URINE NEGATIVE (NEGATIVE); PROTEIN,URINE 100 (NEGATIVE); UROBILINOGEN,URINE 0.2 mg/dL (0.2-1.0)
[2024-02-03 13:21] LABS: BACTERIA,URINE FEW /HPF (0-FEW/HPF); EPITHELIAL CELLS,URINE FEW /HPF (NOT SEEN); HYALINE CASTS,URINE FEW; MUCUS,URINE MODERATE /LPF (NOT SEEN); RBC,URINE 0-5 /HPF (0-5)
[2024-02-03] MEDS: Heparin Sodium 5,000 Units/ML Vial IVPUSH ONE ×2 (13:52→23:49)
[2024-02-03] MEDS: Heparin Sodium/0.45% NaCl 25,000 UNITS/500 ML BAG IV SCH (13:54)
[2024-02-03 15:52] LABS: C-REACTIVE PROTEIN 4.47 ng/dL (<=0.50)
[2024-02-03] MEDS ORDERED: Oseltamivir 75 MG Cap PO ONE (16:43)
[2024-02-03] MEDS ORDERED: REMDESIVIR 200 MG in Sodium Chloride 0.9% 250 ML IV ONE (16:43)
[2024-02-03] MEDS ORDERED: Albuterol/Ipratropium 3.0-0.5 MG/3 ML Neb Soln NEB PRN (16:45)
[2024-02-03] MEDS ORDERED: Dexamethasone 4 MG/ML SDV IVPUSH ONE (16:45)
[2024-02-03] MEDS ORDERED: Ondansetron 4 MG/2 ML SDV IVPUSH PRN (16:45)
[2024-02-03] MEDS ORDERED: Sennosides/Docusate Sodium 50-8.6 MG Tab PO PRN (16:45)
[2024-02-03] MEDS ORDERED: Sodium Chloride 0.9% 1,000 ML IV SCH ×2 (16:45→20:00)
[2024-02-03] MEDS ORDERED: Magnesium Hydroxide 400 MG/5 ML Susp 30 ML Cup PO PRN (16:45)
[2024-02-03] MEDS ORDERED: Polyethylene Glycol 3350 Powder 17 GM Packet PO PRN (16:45)
[2024-02-03] MEDS ORDERED: guaiFENesin/Dextromethorphan 100-10 MG/5 ML Soln 5 ML Cup PO PRN (16:52)
[2024-02-03] MEDS ORDERED: diphenhydrAMINE 50 MG/ML SDV IVPUSH ONE (16:54)
[2024-02-03] MEDS ORDERED: Acetaminophen 325 MG Tab PO ONE (16:54)
[2024-02-03 17:58] LABS: ANION GAP 14.3 mEq/L (7-13); BILIRUBIN TOTAL 0.3 mg/dL (0.2-1.0); POTASSIUM,K 4.3 mmol/L (3.5-5.1); PROTEIN TOTAL,TP 5.9 g/dL (6.4-8.2)
[2024-02-03 18:15] LABS: A/G RATIO 0.9; ALBUMIN 2.8 g/dL (3.4-5.0); BILIRUBIN DIRECT 0.1 mg/dL (0.0-0.2); CALCIUM 8.4 mg/dL (8.5-10.1); CREATININE 1.15 mg/dL (0.55-1.02); EST CRCL DRUG DOSING (CG) 37.45 mL/min
[2024-02-03 18:24] LABS: BUN/CREATININE RATIO 15.7 (No establ ref range)
[2024-02-03 19:58] LABS: LACTIC ACID 1.5 mmol/L (0.4-2.0)
[2024-02-03] MEDS: Aspirin 81 MG Tab.Chew PO ONE (19:58)
[2024-02-03] MEDS: Oseltamivir 75 MG Cap PO ONE (20:00)
[2024-02-03] MEDS: Acetaminophen 325 MG Tab PO ONE (20:00)
[2024-02-03] MEDS: guaiFENesin 600 MG Tab.ER PO SCH (20:00)
[2024-02-03] MEDS: Saccharomyces Boulardii (Probiotic) 250 MG Cap PO SCH (20:00)
[2024-02-03] MEDS: REMDESIVIR 200 MG in Sodium Chloride 0.9% 250 ML IV ONE (20:01)
[2024-02-03] MEDS: cefTRIAXone 1 GM Vial IVPUSH SCH (20:02)
[2024-02-03] MEDS: diphenhydrAMINE 50 MG/ML SDV IVPUSH ONE (20:02)
[2024-02-03] MEDS: Dexamethasone 4 MG/ML SDV IVPUSH ONE (20:02)
[2024-02-03] MEDS ORDERED: Midodrine 5 MG Tab PO PRN (20:42)
[2024-02-03] MEDS ORDERED: Famotidine 20 MG Tab PO SCH (21:00)
[2024-02-03] MEDS: Azithromycin 500 MG in Sodium Chloride 0.9% 250 ML IV ONE (21:33)
[2024-02-03] MEDS: Famotidine 20 MG Tab PO SCH (21:36)
[2024-02-03] MEDS: Fluconazole/Normal Saline 200 MG in Premix Bag 1 BAG IV ONE (22:59)
[2024-02-03] MEDS: Zolpidem 5 MG Tab PO PRN (23:48)
[2024-02-03] MEDS: HYDROmorphone 0.5 MG/0.5 ML Syringe IVPUSH PRN (23:49)
[2024-02-04] MEDS: cefTRIAXone 1 GM Vial IVPUSH SCH (00:17)
[2024-02-04] MEDS: Azithromycin 500 MG in Sodium Chloride 0.9% 250 ML IV ONE (00:17)
[2024-02-04] MEDS: Naloxone 2 MG/2 ML Syringe IVPUSH PRN (02:27)
[2024-02-04] MEDS: Levothyroxine 50 MCG Tab PO SCH (05:31)
[2024-02-04 06:19] LABS: BASOPHILS PERCENT AUTO 0.1 % (0.0-1.0); HEMATOCRIT 33.8 % (37.0-47.0); HEMOGLOBIN 10.2 g/dL (12.0-16.0); LYMPHOCYTES PERCENT AUTO 10.6 % (20.5-50.1); MEAN CORPUSCULAR HEMOGLOBIN 28.1 pg (27.0-34.0); MEAN CORPUSCULAR HGB CONC 30.2 g/dL (33.0-35.0); MEAN CORPUSCULAR VOLUME 93.1 fL (80-100); MONOCYTES PERCENT AUTO 4.6 % (2-8); NEUTROPHILS PERCENT AUTO 84.7 % (42.2-75.2); PLATELET COUNT,PLT 166 10^3/uL (150-450); RED BLOOD CELL COUNT 3.63 10^6/uL (4.2-5.4); WHITE BLOOD CELL COUNT,WBC 6.8 10^3/uL (5.0-10.0)
[2024-02-04 06:34] LABS: ALBUMIN 2.4 g/dL (3.4-5.0); ANION GAP 11.9 mEq/L (7-13); BILIRUBIN DIRECT 0.1 mg/dL (0.0-0.2); BILIRUBIN TOTAL 0.2 mg/dL (0.2-1.0); BUN/CREATININE RATIO 19.2 (No establ ref range); CREATININE 0.99 mg/dL (0.55-1.02); EST CRCL DRUG DOSING (CG) 43.5 mL/min; MAGNESIUM 2.1 mg/dL (1.8-2.4); POTASSIUM,K 3.9 mmol/L (3.5-5.1); PROTEIN TOTAL,TP 6.1 g/dL (6.4-8.2)
[2024-02-04 06:36] LABS: A/G RATIO 0.65
[2024-02-04 06:58] LABS: CHOLESTEROL HDL 77 mg/dL (40-59); CHOLESTEROL LDL CALCULATED 66 mg/dL (0-100); CHOLESTEROL TOTAL 153 mg/dL (0-199); TRIGLYCERIDES 50 mg/dL (0-149)
[2024-02-04] MEDS: Aspirin 81 MG Tab.Chew PO SCH (08:48)
[2024-02-04] MEDS: Hydroxychloroquine 200 MG Tab PO SCH (08:48)
[2024-02-04] MEDS: Carvedilol 3.125 MG Tab PO SCH (08:49)
[2024-02-04] MEDS: guaiFENesin 600 MG Tab.ER PO SCH (08:50)
[2024-02-04] MEDS: Loratadine 10 MG Tab PO SCH (08:50)
[2024-02-04] MEDS: Fluconazole 100 MG Tab PO SCH (08:50)
[2024-02-04] MEDS: Montelukast 10 MG Tab PO SCH (08:50)
[2024-02-04] MEDS: REMDESIVIR 100 MG in Sodium Chloride 0.9% 100 ML IV SCH (08:50)
[2024-02-04] MEDS: Oseltamivir 30 MG Cap PO SCH (08:50)
[2024-02-04] MEDS: Dexamethasone 6 MG TABLET PO SCH (08:50)
[2024-02-04] MEDS: Azithromycin 500 MG in Sodium Chloride 0.9% 250 ML IV SCH (08:51)
[2024-02-04] MEDS ORDERED: Oseltamivir 75 MG Cap PO SCH (09:00)
[2024-02-04] MEDS ORDERED: Non-Formulary Medication 1 Each (Fexofenadine Hcl [Fexofenadine Hcl] 180 MG Tablet) PO SCH (09:00)
[2024-02-04] MEDS: Acetaminophen 325 MG Tab PO PRN (13:18)
[2024-02-04] MEDS: Promethazine 25 MG/ML SDV IM PRN (20:15)
[2024-02-04] MEDS: Acetaminophen/HYDROcodone 325-10 MG Tab PO PRN (20:15)
[2024-02-04] MEDS: Midodrine 5 MG Tab PO PRN (21:30)
[2024-02-04] MEDS: hydrALAZINE 20 MG/ML SDV IVPUSH PRN (22:00)
[2024-02-05] MEDS: Heparin Sodium 5,000 Units/ML Vial IVPUSH ONE (01:50)
[2024-02-05 06:21] LABS: EOSINOPHILS PERCENT AUTO 0.1 % (1.0-3.0); HEMATOCRIT 35.2 % (37.0-47.0); HEMOGLOBIN 10.7 g/dL (12.0-16.0); LYMPHOCYTES PERCENT AUTO 9.7 % (20.5-50.1); MEAN CORPUSCULAR HEMOGLOBIN 27.6 pg (27.0-34.0); MEAN CORPUSCULAR HGB CONC 30.4 g/dL (33.0-35.0); MEAN CORPUSCULAR VOLUME 90.7 fL (80-100); MONOCYTES PERCENT AUTO 8.7 % (2-8); NEUTROPHILS PERCENT AUTO 81.5 % (42.2-75.2); PLATELET COUNT,PLT 205 10^3/uL (150-450); RED BLOOD CELL COUNT 3.88 10^6/uL (4.2-5.4); WHITE BLOOD CELL COUNT,WBC 14.2 10^3/uL (5.0-10.0)
[2024-02-05 06:52] LABS: A/G RATIO 0.65; ALBUMIN 2.6 g/dL (3.4-5.0); ANION GAP 14.8 mEq/L (7-13); BILIRUBIN DIRECT 0.1 mg/dL (0.0-0.2); BILIRUBIN TOTAL 0.2 mg/dL (0.2-1.0); C-REACTIVE PROTEIN 4.06 ng/dL (<=0.50); CALCIUM 8.5 mg/dL (8.5-10.1); EST CRCL DRUG DOSING (CG) 43.07 mL/min; POTASSIUM,K 3.8 mmol/L (3.5-5.1); PROTEIN TOTAL,TP 6.6 g/dL (6.4-8.2)
[2024-02-06 06:26] LABS: HEMATOCRIT 31.7 % (37.0-47.0); HEMOGLOBIN 9.5 g/dL (12.0-16.0); LYMPHOCYTES PERCENT AUTO 11.7 % (20.5-50.1); MEAN CORPUSCULAR HEMOGLOBIN 27.2 pg (27.0-34.0); MEAN CORPUSCULAR VOLUME 90.8 fL (80-100); MONOCYTES PERCENT AUTO 11.2 % (2-8); NEUTROPHILS PERCENT AUTO 77.1 % (42.2-75.2); PLATELET COUNT,PLT 196 10^3/uL (150-450); RED BLOOD CELL COUNT 3.49 10^6/uL (4.2-5.4); WHITE BLOOD CELL COUNT,WBC 9.5 10^3/uL (5.0-10.0)
[2024-02-06 06:45] LABS: ALBUMIN 2.3 g/dL (3.4-5.0); ANION GAP 7.4 mEq/L (7-13); BILIRUBIN DIRECT 0.1 mg/dL (0.0-0.2); BILIRUBIN TOTAL 0.2 mg/dL (0.2-1.0); BUN/CREATININE RATIO 25.5 (No establ ref range); C-REACTIVE PROTEIN 1.71 ng/dL (<=0.50); CALCIUM 8.1 mg/dL (8.5-10.1); CREATININE 0.98 mg/dL (0.55-1.02); EST CRCL DRUG DOSING (CG) 43.95 mL/min; POTASSIUM,K 3.4 mmol/L (3.5-5.1); PROTEIN TOTAL,TP 5.8 g/dL (6.4-8.2)
[2024-02-06 06:50] LABS: A/G RATIO 0.66
[2024-02-06] MEDS: Apixaban 5 MG Tab PO SCH (08:59)
[2024-02-07 06:14] LABS: HEMATOCRIT 31.7 % (37.0-47.0); HEMOGLOBIN 9.8 g/dL (12.0-16.0); MEAN CORPUSCULAR HEMOGLOBIN 27.8 pg (27.0-34.0); MEAN CORPUSCULAR HGB CONC 30.9 g/dL (33.0-35.0); MEAN CORPUSCULAR VOLUME 90.1 fL (80-100); PLATELET COUNT,PLT 189 10^3/uL (150-450); RED BLOOD CELL COUNT 3.52 10^6/uL (4.2-5.4)
[2024-02-07 06:30] LABS: BASOPHILS PERCENT AUTO 0.1 % (0.0-1.0); EOSINOPHILS PERCENT AUTO 0.1 % (1.0-3.0); LYMPHOCYTES PERCENT AUTO 17.3 % (20.5-50.1); MONOCYTES PERCENT AUTO 13.9 % (2-8); NEUTROPHILS PERCENT AUTO 68.6 % (42.2-75.2)
[2024-02-07 06:37] LABS: ALBUMIN 2.4 g/dL (3.4-5.0); BILIRUBIN DIRECT 0.1 mg/dL (0.0-0.2); BILIRUBIN TOTAL 0.2 mg/dL (0.2-1.0); BUN/CREATININE RATIO 24.5 (No establ ref range); C-REACTIVE PROTEIN 0.96 ng/dL (<=0.50); CALCIUM 8.1 mg/dL (8.5-10.1); CREATININE 1.02 mg/dL (0.55-1.02); EST CRCL DRUG DOSING (CG) 42.22 mL/min; PROTEIN TOTAL,TP 5.7 g/dL (6.4-8.2)
[2024-02-07 06:38] LABS: A/G RATIO 0.73
[2024-02-07 06:45] LABS: LYMPHOCYTES PERCENT MAN 19 % (20-50); MONOCYTES PERCENT MAN 10 % (2-8); SEG NEUTROPHILS PERCENT MAN 71 % (42-75)
[2024-02-07] MEDS: Furosemide 20 MG Tab PO SCH (09:25)
[2024-02-07] MEDS: Formoterol/Mometasone 200-5 MCG 8.8 GM Inhaler IH ONE (09:45)
[2024-02-07] MEDS: Formoterol/Mometasone 200-5 MCG 8.8 GM Inhaler IH SCH (18:16)
== END 2024-02-08 12:03 | disposition home or self-care (01) | DRG 177 ==
LOC: EDBD → DL.ED 11:14 → DL.MS 16:33 → UNDOADMIN 16:33 → DL.MS 02-05 13:35
PROVIDERS: ADMIT Internal Medicine; ATTEND Internal Medicine
PROC: 5A0935A Assistance with Respiratory Ventilation, Less than 24 Consecutive Hours, High Flow/Velocity Cannula (ICD-10-PCS; principal; 2024-02-05)
PROC: XW033E5 Introduction of Remdesivir Anti-infective into Peripheral Vein, Percutaneous Approach, New Technology Group 5 (ICD-10-PCS; 2024-02-05)
PROC: 3E0333Z Introduction of Anti-inflammatory into Peripheral Vein, Percutaneous Approach (ICD-10-PCS; 2024-02-05)
DX: U07.1 COVID-19 (principal); G93.41 Metabolic encephalopathy; I10 Essential (primary) hypertension; I21.4 Non-ST elevation (NSTEMI) myocardial infarction; Z88.1 Allergy status to other antibiotic agents; J96.01 Acute respiratory failure with hypoxia; I97.191 Other postprocedural cardiac functional disturbances following other surgery; Z86.16 Personal history of COVID-19; E87.1 Hypo-osmolality and hyponatremia; J44.0 Chronic obstructive pulmonary disease with (acute) lower respiratory infection; N17.9 Acute kidney failure, unspecified; D84.9 Immunodeficiency, unspecified; Z66 Do not resuscitate; M32.9 Systemic lupus erythematosus, unspecified; I48.0 Paroxysmal atrial fibrillation; I27.20 Pulmonary hypertension, unspecified; I12.9 Hypertensive chronic kidney disease with stage 1 through stage 4 chronic kidney disease, or unspecified chronic kidney disease; N18.30 Chronic kidney disease, stage 3 unspecified; E03.9 Hypothyroidism, unspecified; M19.90 Unspecified osteoarthritis, unspecified site; M54.9 Dorsalgia, unspecified; G89.29 Other chronic pain; E78.5 Hyperlipidemia, unspecified; E86.0 Dehydration; D63.1 Anemia in chronic kidney disease; D50.9 Iron deficiency anemia, unspecified; E87.8 Other disorders of electrolyte and fluid balance, not elsewhere classified; E66.9 Obesity, unspecified; Z68.31 Body mass index [BMI] 31.0-31.9, adult; Z87.440 Personal history of urinary (tract) infections; Z88.0 Allergy status to penicillin; Z88.7 Allergy status to serum and vaccine; Z88.8 Allergy status to other drugs, medicaments and biological substances; Z79.899 Other long term (current) drug therapy; Z79.01 Long term (current) use of anticoagulants; Z79.52 Long term (current) use of systemic steroids; Z95.1 Presence of aortocoronary bypass graft; Z86.711 Personal history of pulmonary embolism
CPT/HCPCS: 36415 ×2; 70450; 71045; 72170; 80048; 80053; 80076; 81001; 82248; 83605; 84145; 84484; 85025 ×2; 85730 ×3; 86140 ×2; 87040 ×2; 87086; 87804 ×2; 93005; 93010; 96374; 99285 ×2; A9270 ×8; C1758; J0456; J1644 ×3; J7050; J8540; U0002; 80061; 83735; 87045; 87046; 87899; 94010; 94667; 97161-GP; 97165-GO; 97530-GP; J0248; J0360; J0696; J1100; J1170; J1200; J1450; J2310; J2550; J3490